=== PATIENT | male | born 1950 | race Caucasian/White ===

== ENCOUNTER 2017-10-28 13:20 | Inpatient (IN) | payer MEDICARE ==
[~2017-10-28] VITALS: Ht 177.8 cm; Wt 77.1 kg
[~2017-10-28 13:20] MED LIST: LEVAQUIN 500 M500 M2 PO; THIAMINE HCL100 MG PO; VITAMIN B-12500 MCG PO
[2017-10-28 13:24] VITALS: BP 123/64
[2017-10-28 13:53] LABS: ABSOLUTE EOSINOPHILS 0.1 thou/uL (0.0-0.7); ABSOLUTE LYMPHOCYTES 0.5 thou/uL (0.8-5.3); ABSOLUTE MONOCYTES 0.4 thou/uL (0.0-1.2); ABSOLUTE NEUTROPHILS 2.8 thou/uL (1.6-8.1); BASOPHILS 0.7 %; EOSINOPHILS 3.7 %; HEMATOCRIT 39.5 % (42.0-52.0); HEMOGLOBIN 13.4 gm/dL (14.0-18.0); LYMPHOCYTES 12.3 %; MCH 33.8 pg (26.0-34.0); MCHC 33.9 g/dL (28.0-37.0); MCV 99.7 fL (80.0-100.0); MONOCYTES 10.2 %; NUCLEATED RBCS 0 /100WBC; PLATELET COUNT* 91 thou/uL (150-400); POLYS 73.1 %; RBC 3.97 mil/uL (4.50-6.00); RDW-CV 15.5 % (10.5-14.5); WBC 3.9 thou/uL (4.0-11.0)
[2017-10-28 14:00] LABS: CALCIUM 9.4 mg/dL (8.5-10.1); CREATININE 1.3 mg/dL (0.6-1.3); POTASSIUM 3.1 mmol/L (3.5-5.1)
[2017-10-28 14:05] LABS: TOTAL BILIRUBIN 1.9 mg/dL (<0.1-1.0); TOTAL PROTEIN 7.7 g/dL (6.4-8.2)
[2017-10-28 14:13] LABS: ACETAMINOPHEN < 2 ug/mL (10-30); ALCOHOL < 10 mg/dL (<10)
[2017-10-28 14:14] LABS: SALICYLATE < 2.8 mg/dL (2.8-20.0)
[2017-10-28 16:14] LABS: URINE BLOOD NEGATIVE (Negative); URINE CLARITY CLEAR; URINE COLOR DARK YELLOW; URINE GLUCOSE-RANDOM NEGATIVE (Negative); URINE KETONES 1+ (Negative); URINE LEUKOCYTES-REFLEX NEGATIVE (Negative); URINE NITRITE-REFLEX NEGATIVE (Negative); URINE PROTEIN 1+ (Negative); URINE SPECIFIC GRAVITY 1.025 (1.005-1.030)
[2017-10-28 16:21] LABS: AMP/METHAMP Negative (Negative); BARBITURATES Negative (Negative); BENZODIAZEPINES Negative (Negative); COCAINE Negative (Negative); METHADONE Negative (Negative); OPIATES Negative (Negative); PCP Negative (Negative); THC Negative (Negative)
[2017-10-28 16:23] LABS: ICTOTEST (BILI CONFIRMATORY) Negative (Negative); URINE BILIRUBIN 2+ (Negative)
[2017-10-28 16:47] LABS: HYALINE CASTS >10 Many /LPF (None Seen); MUCUS >6 Heavy strn/LPF (None Seen)
[2017-10-28 16:48] LABS: SQUAMOUS 0-3 Few /LPF (0-3)
[2017-10-28 16:49] LABS: BACTERIA-REFLEX 1-9 Few /HPF (None Seen); CRYSTALS None Seen /LPF (None Seen); URINE RBC 0-2 Rare /HPF (0-2); URINE WBC-REFLEX 0-5 Rare /HPF (0-5)
[2017-10-28 18:08] VITALS: BP 144/86
[2017-10-28 18:10] VITALS: BP 137/91
[2017-10-28 18:23] VITALS: BP 123/64
[2017-10-28 20:00] VITALS: BP 140/85
[2017-10-29] VITALS: BP 138/84
[2017-10-29 03:53] VITALS: BP 143/91
[2017-10-29 08:00] VITALS: BP 146/82
[2017-10-29 12:00] VITALS: BP 132/73
[2017-10-29 20:00] VITALS: BP 138/90
[2017-10-30] VITALS (7 sets, daily range): BP systolic 127–145; BP diastolic 64–87
[2017-10-30 04:59] LABS: MAGNESIUM 1.5 mg/dL (1.8-2.4)
[2017-10-30 13:25] LABS: CHOLESTEROL 139 mg/dL (<200); HDL CHOLESTEROL 35 mg/dL (>40); LDL CHOLESTEROL 89 mg/dL (<100); TRIGLYCERIDE 75 mg/dL (<150); VLDL 15 mg/dL (<40)
[2017-10-30 13:26] LABS: SERUM ASSESSMENT Clear
[2017-10-31] VITALS: BP 142/82
[2017-10-31 04:00] VITALS: BP 125/76
[2017-10-31 08:04] VITALS: BP 145/80
[2017-10-31] MEDS ORDERED: ASPIR 8181 MG PO (11:27)
[2017-10-31] MEDS ORDERED: PRENATAL PO (11:28)
[2017-10-31 11:29] VITALS: BP 145/80
[2017-10-31 11:50] VITALS: BP 146/78
--- NOTE | 2017-11-07 08:15 | CON ---
[facility] [address] [place] [address] CONSULTATION Name: MAME MILIAN Room: [address] IN M.R.#: [id number] Admission: 10/28/17 Attend Phys: Rodrigo Griffiths Discharge: 10/31/17 Date of : 46 Report #: [id number] THIS REPORT FOR: //name// CC: [facility] Kelvin Weinberg DATE OF SERVICE: 10/28/2017 HISTORY OF PRESENT ILLNESS: This is a 66-year-old male patient who was evaluated by me for the possibility of a stroke. The patient is very hard of hearing. It is very difficult to get the history from him. He said he is here because he has hallucination. He is seeing things, which are not there. His vision has been poor because of diabetes, but he does not believe his vision is any worse. He drinks alcohol everyday. He said 2-3 drinks, but from CBC, it looks like he may be drinking much more than what he is telling us. There is nobody to confirm this patient's history because I cannot reach anybody. REVIEW OF SYSTEMS: Indicates that this patient drinks alcohol in significant amount everyday. He did not think he cut back. He does not believe that he had hallucinations in the past. He does have a significantly diminished vision and he indicated this is his baseline. He is hard of hearing. He said he was working, but he is not going back to work. He is a diabetic. He said he is not going back to work because of his age, not because of anything else. I carried out the 14-point review of systems the best I can. He is very hard of hearing. He has baseline visual disturbances. He is not having any chest pain, respiratory difficulty. He did have some GI symptom where he was vomiting. He denies any symptoms. He denies any musculoskeletal, constitutional, dermatological, hematological, throat, allergic symptom associated with present symptomatology. PAST MEDICAL HISTORY: Positive for alcohol intake. FAMILY HISTORY: Negative for early age stroke. SOCIAL HISTORY: Positive for drinking alcohol every days. PHYSICAL EXAMINATION: Indicate he is very difficult to evaluate because he is very hard of hearing and his vision is poor, but looks like he is alert. He can tell me what month it is, and his speech looks okay. He believes his memory and fund of knowledge is at his baseline. Cranial nerve examination 2-12 indicates decreased vision, which he indicates is because of the diabetes affecting his eyes in the past. His strength, sensation, reflexes and tone is symmetrical. I could not look at his fundus. There is no meningeal sign. There is no carotid bruit. There is no cerebellar sign. His pulses are difficult to feel. His reflexes are diminished on both sides. He has no edema, [place]osis [place] [address] CONSULTATION Name: MAME MILIAN Room: [address] IN [facility]#: [id number] Admission: 10/28/17 Attend Phys: Rodrigo Griffiths Discharge: 10/31/17 Date of : 46 Report #: [id number] He is a well-developed individual who does not have any thyroid mass or any carotid bruit. Cardiac examination is unremarkable. No respiratory difficulty or rhonchi was noticed. Blood pressure is 123/64, respirations 17, pulse is 119, temperature is 99.7. LABORATORY DATA: Indicate a WBC count of 3.9, platelet count of 91, which would indicate that he probably drinks alcohol more than he is telling us, same is true with the liver function, which is markedly abnormal. His MRI and CT scan was done in Emergency Room and that appears unremarkable. IMPRESSION: Hallucination. It is unlikely there is any neurological etiology for that, especially stroke. This patient has liver dysfunction. He is a diabetic. He has a prior ophthalmological problem. I will suggest concentrating the patient's workup to evaluate those further. I will defer that further evaluation and management to yourself. A lot of his symptoms can also be alcohol related, and again, that may have to be addressed in this patient. RECOMMENDATIONS: Neurologically, I do not think much to add because I do not think his symptoms are neurological primarily. I will suggest concentrating on his liver abnormalities, eye abnormalities, his alcoholism, etc., and I will defer that evaluation and management to you. I will get an EEG and will suggest getting a carotid and echocardiogram to look for any cardiomyopathy. Otherwise, neurologically, I do not have anything specific to add, and we will follow this patient as necessary. <ELECTRONICALLY SIGNED> By: Kun Smiley MD 11/07/17 0815 50 235Kun Smiley MD /carol
--- NOTE | 2017-11-07 08:15 | EEG ---
[address] [address] EEG STUDY REPORT Name: MAME MILIAN Room: [address] IN M.R.#: [id number] Admission: 10/28/17 Attend Phys: Rodrigo Griffiths Discharge: 10/31/17 Date of : 46 Report #: [id number] THIS REPORT FOR: //name// CC: [facility] Kelvin Weinberg DATE OF SERVICE: 10/29/2017 This patient is being evaluated for altered mental status. EEG was done by placing the electrode by standard 10/20 system of electrode placement. Both referential and sequential montages were used for recording. Background activity in this patient's EEG is about 8-9 Hz and 30 microvolts. This is a symmetrical activity. The patient went to sleep that is associated with bilateral slowing and vertex sharp waves. Photic stimulation is unremarkable. Throughout the record, no active epileptiform activity was noticed. IMPRESSION: This patient's EEG is intermixed with theta range slowing on both sides. That is a nonspecific abnormality, which can occur with encephalopathy, effect of psychotropic medication, dementia, etc. Clinical correlation is recommended. <ELECTRONICALLY SIGNED> By: Kun Smiley MD 11/07/17 0815 [id number] [id number] Smiley MD /nt
== END 2017-10-31 14:17 | disposition home or self-care (01) | DRG 70 ==
LOC: M.ERS 13:20 → M.TBA-ER 17:28 → M.2W 17:28
PROVIDERS: Emergency Medicine; ADMIT Internal Medicine
DX: G93.40 Encephalopathy, unspecified (principal); R65.11 Systemic inflammatory response syndrome (SIRS) of non-infectious origin with acute organ dysfunction; D61.818 Other pancytopenia; G62.1 Alcoholic polyneuropathy; G31.84 Mild cognitive impairment of uncertain or unknown etiology; I65.1 Occlusion and stenosis of basilar artery; E11.9 Type 2 diabetes mellitus without complications; K76.89 Other specified diseases of liver; H40.9 Unspecified glaucoma; E03.9 Hypothyroidism, unspecified; R44.1 Visual hallucinations; F10.10 Alcohol abuse, uncomplicated; Y90.9 Presence of alcohol in blood, level not specified; Z98.42 Cataract extraction status, left eye; Z98.41 Cataract extraction status, right eye; Z79.899 Other long term (current) drug therapy

== ENCOUNTER 2018-10-16 09:37 | Inpatient (IN) | payer MEDICARE ==
[2018-10-16] VITALS (14 sets, daily range): BP systolic 99–157; BP diastolic 57–87
[~2018-10-16] VITALS: Ht 182.9 cm; Wt 71.7 kg
[~2018-10-16 09:37] MED LIST changes: +ASPIR 8181 MG PO; +PRENATAL PO
[2018-10-16 10:08] LABS: URINE BILIRUBIN NEGATIVE (Negative); URINE BLOOD NEGATIVE (Negative); URINE CLARITY CLEAR; URINE COLOR YELLOW; URINE GLUCOSE-RANDOM NEGATIVE (Negative); URINE KETONES NEGATIVE (Negative); URINE LEUKOCYTES-REFLEX NEGATIVE (Negative); URINE NITRITE-REFLEX NEGATIVE (Negative); URINE PROTEIN TRACE (Negative); URINE SPECIFIC GRAVITY >= 1.030 (1.005-1.030)
[2018-10-16 10:17] LABS: AMP/METHAMP Negative (Negative); BARBITURATES Negative (Negative); BENZODIAZEPINES Negative (Negative); COCAINE Negative (Negative); METHADONE Negative (Negative); OPIATES Negative (Negative); PCP Negative (Negative); THC Negative (Negative)
[2018-10-16 10:24] LABS: HEMATOCRIT 43.2 % (42.0-52.0); HEMOGLOBIN 14.7 gm/dL (14.0-18.0); MCH 33.3 pg (26.0-34.0); MCV 97.9 fL (80.0-100.0); MPV 7.8 fl. (7.2-11.1); NUCLEATED RBCS 0 /100WBC; PLATELET COUNT* 230 thou/uL (150-400); RBC 4.41 mil/uL (4.50-6.00); RDW-CV 16.1 % (10.5-14.5); WBC 3.4 thou/uL (4.0-11.0)
[2018-10-16 10:30] LABS: ANION GAP 9 mmol/L (7-16); BUN 15 mg/dL (7-18); CALCIUM 8.3 mg/dL (8.5-10.1); CHLORIDE 110 mmol/L (98-107); CO2 30 mmol/L (21-32); GLUCOSE 127 mg/dL (70-99); POTASSIUM 3.7 mmol/L (3.5-5.1); SODIUM 149 mmol/L (136-145)
[2018-10-16 10:31] LABS: APTT 26.7 Seconds (25.0-31.3); PROTIME 10.5 Seconds (9.20-11.50)
[2018-10-16 10:44] LABS: ALCOHOL 268 mg/dL (<10); SALICYLATE < 2.8 mg/dL (2.8-20.0)
[2018-10-16 10:45] LABS: ACETAMINOPHEN < 2 ug/mL (10-30)
[2018-10-16 10:46] LABS: ALBUMIN 3.3 g/dL (3.4-5.0); ALKALINE PHOSPHATASE 160 U/L (46-116); NT-PRO BRAIN NAT PEPTIDE 46 pg/mL (<300); SGOT 25 U/L (15-37); SGPT 31 U/L (30-65); TOTAL BILIRUBIN 0.3 mg/dL (<0.1-1.0); TOTAL PROTEIN 6.9 g/dL (6.4-8.2); TROPONIN-I LEVEL <0.06 ng/mL (<0.06)
[2018-10-16 10:53] LABS: ABSOLUTE EOSINOPHILS 0.4 thou/uL (0.0-0.7); ABSOLUTE LYMPHOCYTES 1.4 thou/uL (0.8-5.3); ABSOLUTE MONOCYTES 0.5 thou/uL (0.0-1.2)
[2018-10-16 10:54] LABS: ANISOCYTOSIS 1+; PLATELET ESTIMATE ADEQUATE; POIKILOCYTOSIS 1+
--- NOTE | 2018-10-16 13:41 | NUR ---
SPOKE WITH KELBY FROM [facility] ([phone]). THEY HAVE BEEN FOLLOWING PATIENT AT HOME. THEY HAD AN APPT TO SEE THE PT YESTERDAY BUT THEY COULDN'T REACH HIM. WHEN THEY WERE UNABLE TO REACH HIM AGAIN THIS MORNING THEY CALLED THE POLICE TO DO A WELL-CHECK, HAD TO BREAK INTO THE HOUSE. 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 SHE MADE A HOTLINE CALL TO SENIOR SERVICES THIS MORNING. SHE SAID SHE WILL COME SEE HIM ONCE HE IS MORE AWAKE AND ALERT, THEY HAVE BEEN TRYING TO WORK WITH HIM TO GET HIM TO AGREE WITH AN ALTERNATE LIVING ARRANGEMENT. KELBY SAID THEY HAVE NO EMERGENCY CONTACT INFORMATION ON HIM. HE HAS AN EX- BUT KELBY DOESN'T KNOW IF HE HAS ANY CONTACT WITH HER, HE HAS AN ESTRANGED DAUGHTER THAT HE HAS NO CONTACT WITH. CASE MGT WILL CONTINUE TO FOLLOW.
--- NOTE | 2018-10-16 16:10 | EKG ---
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: Carlos MOTA : 1950 Requested By: Dequan Lord Order Number: [id number] MD: Kelvin Almendarez Measurements Intervals [place] Rate: 71 P: 44 CO: 229 QRS: 47 QRSD: 135 T: 7 QT: 402 QTc: 437 Interpretive Statements Sinus rhythm Prolonged CO interval Right bundle branch block Compared to ECG 06/30/2014 06:58:37 First degree AV block now present Right bundle-branch block now present Sinus tachycardia no longer present Electronically Signed On 10-16-2018 16:10:44 CDT by Kelvin Almendarez [email or web address] <ELECTRONICALLY SIGNED> By: Kelvin Almendarez MD, [facility] 10/16/18 1610 1001 1001 Kelvin Almendarez MD, [facility] /EPI
--- NOTE | 2018-10-16 19:24 | NUR ---
10/16 Days: New admit from the ED. Agitated and anxious at times, CIWAL >10, PRN ativan utilized. MRI on hold as patient can not relay history. No family contact information on file.
[2018-10-17] VITALS (17 sets, daily range): BP systolic 114–162; BP diastolic 66–107
[2018-10-17 04:29] LABS: ABSOLUTE EOSINOPHILS 0.3 thou/uL (0.0-0.7); ABSOLUTE LYMPHOCYTES 0.6 thou/uL (0.8-5.3); ABSOLUTE MONOCYTES 0.9 thou/uL (0.0-1.2); ABSOLUTE NEUTROPHILS 3.4 thou/uL (1.6-8.1); BASOPHILS 0.5 %; EOSINOPHILS 6.3 %; HEMATOCRIT 41.5 % (42.0-52.0); HEMOGLOBIN 13.6 gm/dL (14.0-18.0); LYMPHOCYTES 11.7 %; MCH 32.5 pg (26.0-34.0); MCHC 32.7 g/dL (28.0-37.0); MCV 99.5 fL (80.0-100.0); MONOCYTES 16.8 %; NUCLEATED RBCS 0 /100WBC; PLATELET COUNT* 172 thou/uL (150-400); POLYS 64.7 %; RBC 4.17 mil/uL (4.50-6.00); WBC 5.2 thou/uL (4.0-11.0)
[2018-10-17 04:57] LABS: ALBUMIN 3.1 g/dL (3.4-5.0); CREATININE 0.7 mg/dL (0.6-1.3); MAGNESIUM 2.1 mg/dL (1.8-2.4); POTASSIUM 4.2 mmol/L (3.5-5.1); TOTAL BILIRUBIN 0.7 mg/dL (<0.1-1.0); TOTAL PROTEIN 6.3 g/dL (6.4-8.2)
[2018-10-17 05:19] LABS: CHOLESTEROL 141 mg/dL (<200); HDL CHOLESTEROL 46 mg/dL (>40); LDL CHOLESTEROL 84 mg/dL (<100); TC:HDL 3.1 Ratio (Not establshd); TRIGLYCERIDE 55 mg/dL (<150); VLDL 11 mg/dL (<40)
[2018-10-17 05:36] LABS: SERUM ASSESSMENT CLEAR
--- NOTE | 2018-10-17 05:57 | NUR ---
REPORT RECEIVED FROM OFF GOIGN SHIFT AND CARE ASSUMMED. PT RESTED QUIELTY MOST OF SHIFT, HOWEVER WOKE CONFUSED AND PULLED ALL IVS OUT AND MONITORS OFF. ATTEMPTED TO REORIENT PT UNSUCCESSFULLY. SEIZURE PRECAUTIONS REMAIN IN AFFECT. MONITORS INTACT WITH ALARMS SET. VSS AND NO ACUTE CHANGES DURING SHIFT WILL CONTINUE TO MONITOR
--- NOTE | 2018-10-17 18:00 | NUR ---
ASSESSMENT CHARTED. VSS. UP WITH 1 ASSIST TO CHAIR BUT PT IS VERY WEAK. RAMIREZ REMOVED AND PATIENT IS INCONTINENT OF BOWEL AND BLADDER. NO REPORTS OF PAIN. CIWA 3,3,2 AND PT DOES NOT APPEAR TO BE ANXIOUS. PT IS NOW TELEMETRY STATUS.
[2018-10-18 02:06] LABS: GLYCOHEMOGLOBIN (HGB A1C) 6.2 % (4.8-5.6)
[2018-10-18 04:40] VITALS: BP 182/86
--- NOTE | 2018-10-18 05:09 | NUR ---
VITALS STABLE, AFEBRILE. PATIENT ALERT AND CONFUSED, ORIENTED TO SELF ONLY AT THIS TIME. INCONTINENT TO URINE AND BOWEL. Q2 TURNS FOR SKIN INTEGRITY. ABLE TO SLEEP SOME.
[2018-10-18 06:03] LABS: ALBUMIN 2.9 g/dL (3.4-5.0); CALCIUM 8.7 mg/dL (8.5-10.1); CREATININE 0.9 mg/dL (0.6-1.3); PHOSPHORUS* 2.8 mg/dL (2.5-4.9); POTASSIUM 4.2 mmol/L (3.5-5.1)
[2018-10-18 08:00] VITALS: BP 171/90
[2018-10-18 12:00] VITALS: BP 158/93
[2018-10-18 16:00] VITALS: BP 157/91
--- NOTE | 2018-10-18 18:47 | NUR ---
PT ASSESSMENT CHARTED. VSS THROUGHOUT SHIFT. UP WITH 1 ASSIST AND A GATE BELT BUT PATIENT IS STILL VERY WEAK. ORDERS RECEIVED FOR PT/OT/ST. UP TO CHAIR FOR MEALS. IV IN LEFT RIGHT REMOVED IT INFILTRATED. NEW 18G PLACED IN LEFT FOREARM. PT INSTRUCTED TO ELEVATE ARM TO HELP REDUCE SWELLING. NO OTHER COMPLAINTS DURING THE SHIFT. PT EATING 100% OF MEALS WITHOUT DIFFICULTY. NO REPORTS OF PAIN.
[2018-10-19 00:13] VITALS: BP 150/96
[2018-10-19 03:59] VITALS: BP 164/98
--- NOTE | 2018-10-19 06:51 | NUR ---
VITALS STABLE, AFEBRILE. PATIENT SLEEPING THROUGH MOST OF THE NIGHT. INCONTINENT, CONFUSED. UNEVENTFUL NIGHT. Q2 TURNS FOR SKIN INTEGRITY.
[2018-10-19 07:19] VITALS: BP 162/107
--- NOTE | 2018-10-19 10:30 | NUR ---
PT SITTING UP IN THE CHAIR, HE KNEW HE WAS AT [facility]. WHEN ASKED WHAT HAPPENED LAST WEEK THAT HE ENDED UP IN THE HOSPITAL, HE SAID HE DIDN'T KNOW. 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 WHEN ASKED IF HE HAD ANY FAMILY, FRIENDS, OR NEIGHBORS WHO COULD HELP HIM IF NEEDED, HE SAID 'NO, THEY AREN'T TALKING TO ME.' PT SAID HE PLANS ON RETURNING HOME ALONE AT DISCHARGE. CASE MGT WILL CONTINUE TO FOLLOW.
[2018-10-19 12:08] VITALS: BP 133/87
--- NOTE | 2018-10-19 13:14 | NUR ---
PATIENT ALERT AND ORIENTED TO SELF, PLACE AND TIME. VSS. O2 SATS >92% IN RA. UP WITH 1 ASSIST AND SITTING IN THE CHAIR FROM 0830,CHAIR ALARM ON. ATE HIS MEALS PROPERLY. HAD A BM- HARD FORMED STOOL.
--- NOTE | 2018-10-19 15:54 | NUR ---
SPOKE WITH STEVEN YOUNG FROM [facility] ([phone]). SHE IS FOLLOWING UP ON HOTLINE CALL. UPDATED HER ON PT'S CONDITION. SHE SAID SHE HAS NOT SEEN PT BUT WILL BE COMING TO THE HOSPITAL.
--- NOTE | 2018-10-19 16:30 | NUR ---
KELBY FROM [facility] HERE TO SEE PT. 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 SHE WILL TALK WITH HIM AND ENCOURAGE HIM TO GO TO A JAIL AT DISCHARGE.
[2018-10-19 16:49] VITALS: BP 165/102
--- NOTE | 2018-10-19 18:01 | NUR ---
PT WALKED THE HALLWAY SLOWLY WTIH THE HELP OF PT.
--- NOTE | 2018-10-19 18:54 | NUR ---
PT TRANSFERRED TO ROOM 219 VIA WHEELCHAIR FROM ICU. REPORT RECEIVED FROM ROBBIE TOBIAS. THIS RN AGREES WITH PREVIOUS DIRECTOR SANITATION BUREAU. WILL CONTINUE TO MONITOR . BED ALARM IN PLACE.
[2018-10-19 19:30] VITALS: BP 126/75
--- NOTE | 2018-10-19 20:10 | NUR ---
RECEIVED REPORT AND ASSUMED CARE. VSS. CARDIAC MONITORING IN PLACE. NO REPORTS OF PAIN FROM PT. PT SLEEPING, WILL AROUSE AND FOLOW COMMANDS. FALLS ASLEEP SHORTLY AFTER BRIEF INTERACTION. BED LOCKED IN LOWEST POSITION, CALL LIGHT WITHIN REACH. BED ALARM ON. ASSESSMENT COMPLETED CHARTED
[2018-10-20] VITALS (7 sets, daily range): BP systolic 98–154; BP diastolic 54–89
[2018-10-20 05:14] LABS: CALCIUM 9.1 mg/dL (8.5-10.1); MAGNESIUM 1.5 mg/dL (1.8-2.4); PHOSPHORUS* 3.8 mg/dL (2.5-4.9); POTASSIUM 3.9 mmol/L (3.5-5.1)
[2018-10-20 05:25] LABS: HEMATOCRIT 39.2 % (42.0-52.0); HEMOGLOBIN 13.4 gm/dL (14.0-18.0); MCHC 34.1 g/dL (28.0-37.0); MCV 96.8 fL (80.0-100.0); MPV 8.7 fl. (7.2-11.1); RBC 4.05 mil/uL (4.50-6.00); RDW-CV 15.3 % (10.5-14.5); WBC 4.3 thou/uL (4.0-11.0)
--- NOTE | 2018-10-20 08:15 | NUR ---
ASSUMED CARE OF PT AT 0730. PT LYING IN BED. PT A&0X4, FORGETFUL AT TIMES. PT IS SLOW TO RESPOND. PT TRACING SR WITH FIRST DEGREE, BBB ON THE RIG SUPERVISOR. ON RA SAT 97%. PT DENIES ANY PAIN OR SHORTNESS OF BREATH AT THIS TIME. PT UP WITH 1 ASSIST. CIWA COMPLETED. REFER TO CHARTING. PT GOAL FOR TODAY IS REPLACE MAGNESIUM PER ELECTROLYTE PROTOCOL, INCREASE ACTIVITY AND DISCHARGE PLANNING. AM ASSESSMENT CHARTED. MEDICATIONS PER JUL. PT REPOSITIONS SELF WITH REMINDERS. HOURLY ROUNDING OBSERVED. BED IN LOW POSITION. BED ALARM IN PLACE. FALL PRECAUTIONS IN PLACE, CALL LIGHT WITHIN REACH. WILL CONTINUE PLAN OF CARE.
--- NOTE | 2018-10-20 15:09 | NUR ---
CM spoke with Pt regarding dispositin and Drs recommendation of skilled, Pt in agreement, faxed referral to [facility] per Pt's request. Pt also asked that CM contact Mariela/Gustavo with [facility] to inform them of dc plan. Anticipate dc tomorrow, pending V decision to accept.
--- NOTE | 2018-10-20 18:09 | NUR ---
NO ACUTE CHANGES THROUGHOUT SHIFT. REFER TO CHARTING. PT PROGRESSING TOWARDS GOALS. PT WORKED WITH PT AND OT TODAY-TOLERATED WELL. PROBABLE DISCHARGE TO SNF TOMORROW 10/21. CONTINUES TO TRACE SR ON THE AUTOMOTIVE AIRCONDITIONING MECHANIC. ON RA SAT UPPER 90'S. PT DENIES ANY SHORTNESS OF BREATH OR PAIN. PT UP WITH 1 ASSIST. PT SAT UP IN THE CHAIR FOR MEALS, TOLERATED WELL. CIWA COMPLETED. REFER TO CHARTING. MEDICATIONS PER JUL. PT REPOSITIONS SELF. HOURLY ROUNDING OBSERVED. BED IN LOW POSITION. CALL LIGHT WITHIN REACH. WILL CONTINUE PLAN OF CARE.
--- NOTE | 2018-10-21 03:12 | NUR ---
ASSUMED CARE OF PT AT 1900. PT IS VERY WITHDRAWN. PT IS ABLE TO FOLLOW COMMANDS BUT WILL NOT ANSWER QUESTIONS. VSS. PERRLA. NO COMPLAINTS OF PAIN. CIWA IS 0. PT IS IN SINUS RYTHM ON THE TELEMETRY. PT IS RESTING COMFORTABLY IN BED. RESPIRATIONS ARE EVEN AND NONLABORED. WILL CONTINUE TO MONITOR PT.
[2018-10-21 04:00] VITALS: BP 123/68
[2018-10-21 07:56] VITALS: BP 139/93
--- NOTE | 2018-10-21 10:11 | NUR ---
ASSUMED CARE OF PT AT 0730. PT RESTING IN BED. PT A&0X4, FORGETFUL, SLOW TO RESPOND, COGNITIVE DELAY NOTED. PT DENIES ANY PAIN OR SHORTNESS OF BREATH AT THIS TIME. PT TRACING SR WITH BBB ON THE SOCIAL STUDIES TEACHER. ON RA SAT UPPER 90'S. PT UP WITH 1 ASSIST. CIWA COMPLETED. REFER TO CHARTING. PT GOAL FOR TODAY IS REPLACE MAGNESIUM PER ELECTROLYTE PROTOCOL, DISCHARGE PLANNING TO SNF AND MONITOR CIWA. AM ASSESSMENT CHARTED. MEDICATIONS PER JUL. PT REPOSITIONS SELF. HOURLY ROUNDING OBSERVED. BED IN LOW POSITION, BED ALARM IN PLACE. FALL PRECAUTIONS IN PLACE. CALL LIGHT WITHIN REACH, WILL CONTINUE PLAN OF CARE.
[2018-10-21 12:35] VITALS: BP 142/92
[2018-10-21 13:18] VITALS: BP 142/92
[2018-10-21] MEDS ORDERED: PRENATAL PO ×2 (14:09→14:11)
[2018-10-21] MEDS ORDERED: VITAMIN B-1100 M1 PO (14:09)
[2018-10-21] MEDS ORDERED: PROTONIX40 M1 PO (14:09)
--- NOTE | 2018-10-21 14:34 | CON ---
[address] [address] CONSULTATION Name: MAME MILIAN Room: [address] IN M.R.#: [id number] Admission: 10/16/18 Attend Phys: Amol Red MD Discharge: Date of : 46 Report #: [id number] THIS REPORT FOR: //name// CC: Kelvin Red DATE OF SERVICE: 10/19/2018 HISTORY OF PRESENT ILLNESS: This is a 67-year-old male patient who was evaluated by me for altered mental status. The patient appeared to be hard of hearing. He does not provide any reliable history. He was found unresponsive at home in very undesirable conditions. I do not know what his baseline is and after talking to him for a while, I still cannot tell what his baseline is. No pill bottles were found and there is some history in the chart, which indicates that there may be problem with alcohol. He is very hard of hearing. He may have some history of neuropathy in the lower extremities. The patient at one point was agitated and apparently was having some visual hallucination. When he came in, his blood alcohol level was 268. REVIEW OF SYSTEMS: Only from the records because he does not provide any good history. Apparently, he has some history of alcohol intake. He had some altered mental status. He is very hard of hearing. He had cataracts. One of the records indicates he had basilar artery stenosis. He did have MRA done in 2018 and at that time it has shown some basilar artery stenosis. This patient was seen by me at that time. At that time, he also has indicated that he had some hallucination. He had liver abnormality at that time. I attempted a 14-point review of system in this patient, but I was not able to get much from him except by reviewing the records as described above. PAST MEDICAL HISTORY: Positive for hallucination. At one time, his liver function was also abnormal. His alcohol level is high. FAMILY HISTORY: He indicates is negative for any seizures. SOCIAL HISTORY: It looks like he drinks alcohol, but he does not tell me how much. PHYSICAL EXAMINATION: His examination is difficult because he is not able to cooperate. He is also very hard of hearing. I cannot tell about his memory problems or any fund of knowledge. Cranial nerve examination 2-12 was attempted, cooperation was poor and I could not tell much. It looks like he can move all four extremities. He has no meningeal sign. He did not allow the fundus examination. Cardiac examination appears unremarkable. No respiratory difficulty or rhonchi was noticed. His blood pressure is 165/102, respiration is 11, pulse is 86 and temperature [place] 98[place] [address] CONSULTATION Name: MAME MILIAN Room: [address] IN M.R.#: [id number] Admission: 10/16/18 Attend Phys: Amol Red MD Discharge: Date of : 46 Report #: [id number] LABORATORY DATA: White count is 5.2. He did have an MRI of the brain, which was unremarkable. IMPRESSION: I suspect the patient's problem is alcohol related. I cannot get a good history to make any definite diagnosis in this patient. I will get an EEG done. He already had an MRI. The treatment may be just symptomatic in this patient. I will discuss this patient with you tomorrow. Thank you very much for this referral. <ELECTRONICALLY SIGNED> By: Kun Russell MD 10/21/18 1434 [id number] Russell MD /nt
--- NOTE | 2018-10-21 15:28 | NUR ---
DISCHARGE ORDERS RECEIVED FOR PT TO DISCHARGE TO [facility]. DISCHARGE INSTRUCTIONS, CARE NOTES AND FOLLOW UP APPTS COPIED AND PLACED IN FOLDER FOR TRANSPORTER. IV AND INFANTRY WEAPONS OFFICER REMOVED. PT DISCHARGED WITH ALL BELONGINGS AND PAPERWORK VIA WHEELCHAIR WITH WHEELCHAIR [facility]. REPORT CALLED TO KATEY AT [facility].
== END 2018-10-21 15:35 | DRG 71 ==
LOC: M.ERS 09:37 → M.ICU 11:36 → M.TBA-ER 11:36 → M.ICU 12:48 → M.2W 10-19 19:00
PROVIDERS: Emergency Medicine Emergency Medical Services; Internal Medicine; ADMIT Family Medicine
DX: G93.41 Metabolic encephalopathy (principal); E44.1 Mild protein-calorie malnutrition; F10.239 Alcohol dependence with withdrawal, unspecified; G31.84 Mild cognitive impairment of uncertain or unknown etiology; H91.90 Unspecified hearing loss, unspecified ear; H40.9 Unspecified glaucoma; H26.9 Unspecified cataract; R26.81 Unsteadiness on feet; I65.1 Occlusion and stenosis of basilar artery; E11.22 Type 2 diabetes mellitus with diabetic chronic kidney disease; N18.2 Chronic kidney disease, stage 2 (mild); E86.0 Dehydration; Y90.9 Presence of alcohol in blood, level not specified; Z79.82 Long term (current) use of aspirin; Z79.899 Other long term (current) drug therapy; Z82.1 Family history of blindness and visual loss

== ENCOUNTER 2019-02-15 15:10 | Inpatient (IN) | payer MEDICARE ==
[~2019-02-15] VITALS: Ht 177.8 cm; Wt 72.0 kg
[~2019-02-15 15:10] MED LIST changes: +PROTONIX40 M1 PO; +VITAMIN B-1100 M1 PO
[2019-02-15 15:12] VITALS: BP 121/87
[2019-02-15] MEDS ORDERED: NEURONTIN600 MG PO (15:34)
[2019-02-15] MEDS ORDERED: METFORMIN HCL500 MG PO (15:34)
[2019-02-15 15:46] LABS: ABSOLUTE BASOPHILS 0.1 thou/uL (0.0-0.2); ABSOLUTE EOSINOPHILS 0.3 thou/uL (0.0-0.7); ABSOLUTE LYMPHOCYTES 1.1 thou/uL (0.8-5.3); ABSOLUTE MONOCYTES 0.5 thou/uL (0.0-1.2); ABSOLUTE NEUTROPHILS 3.4 thou/uL (1.6-8.1); BASOPHILS 1.4 %; EOSINOPHILS 4.7 %; HEMOGLOBIN 14.9 gm/dL (14.0-18.0); LYMPHOCYTES 20.8 %; MCH 32.3 pg (26.0-34.0); MCHC 34.6 g/dL (28.0-37.0); MCV 93.3 fL (80.0-100.0); MONOCYTES 8.5 %; MPV 7.7 fl. (7.2-11.1); NUCLEATED RBCS 0 /100WBC; PLATELET COUNT* 162 thou/uL (150-400); POLYS 64.6 %; RBC 4.61 mil/uL (4.50-6.00); RDW-CV 14.3 % (10.5-14.5); WBC 5.3 thou/uL (4.0-11.0)
[2019-02-15 15:50] LABS: ANION GAP 11 mmol/L (7-16); BUN 16 mg/dL (7-18); CALCIUM 8.8 mg/dL (8.5-10.1); CHLORIDE 102 mmol/L (98-107); CO2 26 mmol/L (21-32); CREATININE 1.4 mg/dL (0.6-1.3); GLUCOSE 161 mg/dL (70-99); POTASSIUM 3.8 mmol/L (3.5-5.1); SODIUM 139 mmol/L (136-145)
[2019-02-15 16:00] LABS: ALBUMIN 3.5 g/dL (3.4-5.0); ALKALINE PHOSPHATASE 193 U/L (46-116); SGOT 25 U/L (15-37); SGPT 29 U/L (30-65); TOTAL BILIRUBIN 1.2 mg/dL (<0.1-1.0); TOTAL PROTEIN 7.2 g/dL (6.4-8.2); TROPONIN-I LEVEL <0.06 ng/mL (<0.06)
[2019-02-15 18:38] LABS: URINE BLOOD NEGATIVE (Negative); URINE CLARITY CLEAR; URINE COLOR YELLOW; URINE GLUCOSE-RANDOM NEGATIVE (Negative); URINE KETONES 1+ (Negative); URINE LEUKOCYTES-REFLEX NEGATIVE (Negative); URINE NITRITE-REFLEX NEGATIVE (Negative); URINE PROTEIN 2+ (Negative); URINE SPECIFIC GRAVITY 1.025 (1.005-1.030)
[2019-02-15 18:44] LABS: AMP/METHAMP Negative (Negative); BARBITURATES Negative (Negative); BENZODIAZEPINES Negative (Negative); COCAINE Negative (Negative); METHADONE Negative (Negative); OPIATES Negative (Negative); PCP Negative (Negative); THC Negative (Negative)
[2019-02-15 18:49] LABS: ICTOTEST (BILI CONFIRMATORY) Negative (Negative); URINE BILIRUBIN 1+ (Negative)
[2019-02-15 19:04] LABS: CRYSTALS None Seen /LPF (None Seen); HYALINE CASTS 4-10 Moderate /LPF (None Seen); MUCUS 4-6 Moderate strn/LPF (None Seen); SQUAMOUS 4-10 Moderate /LPF (0-3); URINE RBC 0-2 Rare /HPF (0-2)
[2019-02-15 19:05] LABS: BACTERIA-REFLEX 1-9 Few /HPF (None Seen); URINE WBC-REFLEX None Seen /HPF (0-5)
--- NOTE | 2019-02-15 21:06 | NUR ---
PT ADMITTED TO FLOOR ACCOMPANIED BY ER STAFF. PT AOX4, VERY [place], CALM AND APPROPRIATE. ORIENTED TO ROOM AND CALL LITE. DENIES PAIN. STATES HE IS WEAK AND HASNT FELT "GOOD" IN A FEW DAYS, FALLING AT HOME. DENIES HITTING HEAD, JUST SCRAPING KNEES HE STATES. INSTRUCTED IN NEED TO CALL FOR ASSIST BEFORE GETTING OOB, PT VERBALIZES UNDERSTANDING. PLACED ON TELE MONITOR, SR BBB RHYTHM NOTED. LFA SL IV. REQUESTING ICE CREAM, GIVEN. CALL LITE IN EASY REACH. BED ALARM ON FOR SAFETY. WILL CONTINUE TO MONITOR AND PROVIDE CARES NEEDED.
[2019-02-15 21:10] VITALS: BP 149/71
[2019-02-15 21:20] VITALS: BP 146/84
[2019-02-16 02:07] LABS: GLYCOHEMOGLOBIN (HGB A1C) 6.5 % (4.8-5.6)
[2019-02-16 04:17] VITALS: BP 152/80
--- NOTE | 2019-02-16 05:48 | NUR ---
PT AWAKE OFF AND ON OVERNIGHT, WATCHING TV. USING URINAL IN BED TO VOID. TELE SR BBB. LFA SLIV. HAS DENIED PAIN OR PROBLEMS. ICE CREAM SNACK GIVEN X2. SNOQUALMIE. PT MOVES ABOUT IN BED INDEP, TURNS FROM SIDE TO SIDE. CM TO FOLLOW FOR DC PLAN. ABLE TO USE CALL LITE AND MAKE NEEDS KNOWN. BED ALARM ON FOR SAFETY. HISTORY OF ETOH USE/ABUSE. NO TREMORS, HALLUCINATIONS OR SIGNS OF WITHDRAWAL NOTED.
[2019-02-16 07:51] VITALS: BP 133/65
--- NOTE | 2019-02-16 09:30 | EKG ---
[place] [address] ELECTROCARDIOGRAM REPORT Name: MAICOLMAME Akhil Room: [address] ADM IN .R.#: [id number] Admission: 02/15/19 Attend Phys: Rodrigo Griffiths Discharge: Date of : 46 Report #: [id number] THIS REPORT FOR: //name// [facility] ED Test Date: 2019-02-15 Test Time: 15:26:25 Pat Name: MAME MILIAN Department: Room: [facility] Gender: M Stock Checker: EV : 1950 Requested By: Jenny Herrera Order Number: [id number] MD: Ruslan Sutton Measurements Intervals [place] Rate: 95 P: 7 [place]: 218 QRS: 33 QRSD: 132 T: -27 QT: 379 QTc: 477 Interpretive Statements Sinus rhythm First-degree AV block Complete right bundle-branch block Baseline wander in lead(s) V1,V2,V3,V6 Compared to ECG 10/16/2018 10:01:26 No significant changes Electronically Signed On 02-16-2019 9:30:21 CDT by Ruslan Sutton [email or web address] <ELECTRONICALLY SIGNED> By: Ruslan Sutton MD, FACC 02/[birth year]/1930 1526 1526 Ruslan Sutton MD, FAC /EPI
[2019-02-16 12:34] VITALS: BP 125/78
[2019-02-16 16:05] VITALS: BP 133/72
--- NOTE | 2019-02-16 16:05 | NUR ---
ASSESSMENT COMPLETE. PT IS ALERT AND ORIENTED X4. PT IS HARD OF HEARING. PT IS UP STANDBY ASSIST WITH WALKER. PT IS FALL RISK, BED ALARM IN PLACE. PT IN CHAIR PART OF THE DAY. BATH DONE WITH OT. PHYSICAL THERAPY WORKED WITH PATIENT WELL. PT TOLERATING MEALS AND DENIES N/V. PT IS NSR WITH 1ST DEGREE. PT IS ON ROOM AIR,VSS. SEE ASSESSMENT AND VITALS FOR OTHER DETAILS. CALL LIGHT WITHIN REACH, WILL CONTINUE PLAN OF CARE
[2019-02-16 19:53] VITALS: BP 121/71
[2019-02-17] VITALS (7 sets, daily range): BP systolic 125–144; BP diastolic 75–88
[2019-02-17 05:13] LABS: HEMATOCRIT 39.4 % (42.0-52.0); HEMOGLOBIN 13.1 gm/dL (14.0-18.0); MCH 31.6 pg (26.0-34.0); MCHC 33.3 g/dL (28.0-37.0); MCV 94.8 fL (80.0-100.0); MPV 8.2 fl. (7.2-11.1); RBC 4.15 mil/uL (4.50-6.00); RDW-CV 14.6 % (10.5-14.5); WBC 4.4 thou/uL (4.0-11.0)
--- NOTE | 2019-02-17 05:43 | NUR ---
PT SLEPT FAIRLY WELL OVERNIGHT. NO COMPLAINTS OF PAIN OR PROBLEMS. HS ACCUCHECK 170, INSULIN GIVEN WITH SNACK. USING URINAL TO VOID. LFA IVF INFUSING PER PUMP. AM LABS DRAWN. TELE SR BBB. ABLE TO USE CALL LITE AND MAKE NEEDS KNOWN. CALL LITE IN EASY REACH, BED ALARM ON FOR SAFETY.
[2019-02-17 05:52] LABS: ALBUMIN 2.8 g/dL (3.4-5.0); CALCIUM 8.3 mg/dL (8.5-10.1); MAGNESIUM 1.5 mg/dL (1.8-2.4); POTASSIUM 4.1 mmol/L (3.5-5.1); TOTAL BILIRUBIN 0.3 mg/dL (<0.1-1.0); TOTAL PROTEIN 5.9 g/dL (6.4-8.2)
--- NOTE | 2019-02-17 13:09 | NUR ---
Nutrition: Consulted for poor po intake. Pt was eating lunch at visit. Reported normal appetite, denied any acute nutrition concerns, no requests or complaints. Wt stable from last admit in October. Albumin low, was WNL initially. Assess at normal/low nutrition risk.
--- NOTE | 2019-02-17 14:46 | NUR ---
JUDIE met with Sarita from [facility] and then with Karley from [facility] about pt dc planning. Pt lived in home alone that was not a health living environment; reportedly, pt home had bed bugs and was a hoarding situation. Sarita said that pt was being considered for their LONG-TERM but Sarita would not be able to accept for certain and would be discussing with [facility] administration before final decision on whether or not pt could be accepted at [facility]. Sarah wants to be kept in the loop for pt safe dc planning. SW to continue to follow.
--- NOTE | 2019-02-17 18:02 | NUR ---
Patient awake in bed. Patient ambulating with stand by assistance with walker and gait belt this evening. Received telephone order from Dr. Plascencia for ativan. Verified with read back. CIWA assessment completed as documented. Patient denies further needs at this time. All safety measures maintained.
[2019-02-18 03:40] VITALS: BP 128/80
--- NOTE | 2019-02-18 05:45 | NUR ---
PATIENT SLEPT MOST OF THE NIGHT. PATIENT REPORTED LOOSE STOOLS AND MAGNESIUM HAD GONE DOWN TO 1.3 AFTER TWO DOSES OF MAG WERE GIVEN YESTERDAY. MAG WAS REPLACED IV INSTEAD AND CAME UP TO 1.9 THIS MORNING. IV REMAINS SALINE LOCKED. WILL CONTINUE TO MONITOR.
[2019-02-18 07:50] VITALS: BP 134/79
[2019-02-18 15:21] VITALS: BP 134/79
[2019-02-18 15:31] VITALS: BP 134/79
--- NOTE | 2019-02-18 15:54 | NUR ---
ORDERS NOTED FOR DC HOME WITH HH. PT DOESN'T QUALIFY FOR SNF, AMBULATED LONG DISTANCE WELL WITH THERAPY. MULTIPLE DISCUSSIONS WITH [facility] AND [facility] AND YECENIA. PT DOESN'T QUALIFY FOR SNF OR LTC PER [facility]. YECENIA SPOKE WITH PT ABOUT ASSISTED LIVING AT [facility]. PER YECENIA AND PT, PT HAS 'THINGS TO WORK ON AND WANTS TO CONSIDER IT' FOR NOW. PT TO DC HOME WITH HH TODAY. WAS ABLE TO ARRANGE FOR YOLANDA AT HOME TO SEE PT AT HOME, HE IS IN AGREEMENT WITH THAT. PER [facility], THEY ARE WORKING ON ASSISTING PT WITH GETTING HIS HOME CLEANED OUT AND A CAR MOVED. [facility] DID STATE PT IS 'HOARDER' BUT HAS RUNNING WATER, FUNCTIONING TOILET AND COT TO SLEEP ON. PT CONFIRMED THIS. CAB VOUCHER PROVIDED FOR PT TO RETURN HOME [facility]. PT STATES HE HAS GROCERIES AT HOME. TALKED WITH HIM ABOUT HIS ETOH INTAKE AND HE STATES HE HAS 'REALLY CUT BACK.' LEFT VMAIL FOR STEVEN/SANJEEV TO SEE IF STILL HAVE OPEN CASE, HAD TO LEAVE MESSAGE.
[2019-02-18 18:43] VITALS: BP 134/79
--- NOTE | 2019-02-18 18:43 | NUR ---
PATIENT DISCHARGED AT 1830 BY CAB. NO SIGNS OF DISTRESS OBSERVED. ALL SAFETY MEASURES MAINTAINED. PATIENT DENIES FUTHER NEEDS AT THIS TIME. IV REMOVED BEFORE DISCHARGE. WOUND CARE PHOTOS IN CHART. DISCHARGED PAPERWORK GIVEN TO PATIENT.
== END 2019-02-18 18:55 | disposition home health service (06) | DRG 683 ==
LOC: M.ERS 15:10 → M.TBA-ER 18:49 → M.3W 18:49
PROVIDERS: Internal Medicine; Personal Emergency Response Attendant; ADMIT Internal Medicine
DX: N17.0 Acute kidney failure with tubular necrosis (principal); E44.1 Mild protein-calorie malnutrition; E11.40 Type 2 diabetes mellitus with diabetic neuropathy, unspecified; F10.10 Alcohol abuse, uncomplicated; Z79.82 Long term (current) use of aspirin; Z79.899 Other long term (current) drug therapy; Z23 Encounter for immunization; Z68.22 Body mass index [BMI] 22.0-22.9, adult

== ENCOUNTER 2019-04-27 10:48 | Inpatient (IN) | payer MEDICARE ==
[~2019-04-27] VITALS: Ht 180.3 cm; Wt 78.2 kg
[~2019-04-27 10:48] MED LIST changes: +METFORMIN HCL500 MG PO; +NEURONTIN600 MG PO
[2019-04-27 10:55] VITALS: BP 143/92; BP 152/100
[2019-04-27 11:21] LABS: ABSOLUTE BASOPHILS 0.1 thou/uL (0.0-0.2); ABSOLUTE EOSINOPHILS 0.3 thou/uL (0.0-0.7); ABSOLUTE LYMPHOCYTES 0.7 thou/uL (0.8-5.3); ABSOLUTE MONOCYTES 0.6 thou/uL (0.0-1.2); ABSOLUTE NEUTROPHILS 4.2 thou/uL (1.6-8.1); BASOPHILS 1.2 %; HEMATOCRIT 45.7 % (42.0-52.0); HEMOGLOBIN 15.7 gm/dL (14.0-18.0); LYMPHOCYTES 12.4 %; MCH 33.2 pg (26.0-34.0); MCHC 34.3 g/dL (28.0-37.0); MCV 96.8 fL (80.0-100.0); MONOCYTES 10.7 %; MPV 7.6 fl. (7.2-11.1); NUCLEATED RBCS 0 /100WBC; PLATELET COUNT* 229 thou/uL (150-400); POLYS 70.7 %; RBC 4.72 mil/uL (4.50-6.00); RDW-CV 16.4 % (10.5-14.5); WBC 5.9 thou/uL (4.0-11.0)
[2019-04-27 11:27] LABS: CALCIUM 9.4 mg/dL (8.5-10.1); CREATININE 1.3 mg/dL (0.6-1.3); POTASSIUM 3.6 mmol/L (3.5-5.1)
[2019-04-27 11:31] LABS: APTT 26.8 Seconds (25.0-31.3); INR 1.1; PROTIME 11.1 Seconds (9.20-11.50)
[2019-04-27 11:38] LABS: ALBUMIN 3.8 g/dL (3.4-5.0); TOTAL BILIRUBIN 1.3 mg/dL (<0.1-1.0); TOTAL PROTEIN 7.9 g/dL (6.4-8.2)
[2019-04-27 11:56] LABS: URINE BLOOD NEGATIVE (Negative); URINE CLARITY CLEAR; URINE COLOR YELLOW; URINE GLUCOSE-RANDOM NEGATIVE (Negative); URINE KETONES TRACE (Negative); URINE LEUKOCYTES-REFLEX NEGATIVE (Negative); URINE PROTEIN 2+ (Negative); URINE SPECIFIC GRAVITY 1.025 (1.005-1.030)
[2019-04-27 12:05] LABS: URINE BILIRUBIN 2+ (Negative); URINE NITRITE-REFLEX POSITIVE (Negative)
[2019-04-27 12:06] LABS: ICTOTEST (BILI CONFIRMATORY) Negative (Negative)
[2019-04-27 12:08] LABS: BACTERIA-REFLEX 1-9 Few /HPF (None Seen); CASTS None Seen /LPF (None Seen); CRYSTALS None Seen /LPF (None Seen); MUCUS 0-3 Light strn/LPF (None Seen); SQUAMOUS 0-3 Few /LPF (0-3); URINE RBC 0-2 Rare /HPF (0-2); URINE WBC-REFLEX 0-5 Rare /HPF (0-5)
[2019-04-27 14:29] VITALS: BP 144/84
--- NOTE | 2019-04-27 14:30 | NUR ---
ADMIT TO 208 TELEPHONE REPORT GIVEN PRIOR TO ADMIT PATIENT UP VIA CART SBA ASSIST WITH WALKER FROM HOME TO BED ORIENTED TO RM AND CLL LIGHT DENIES PAIN
[2019-04-27 14:45] VITALS: BP 141/88
--- NOTE | 2019-04-27 16:56 | EKG ---
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: : 1950 Requested By: Heron Fuentes Order Number: [id number] MD: Kelvin Almendarez Measurements Intervals [place] Rate: 93 P: 45 AK: 216 QRS: 31 QRSD: 130 T: -3 QT: 377 QTc: 469 Interpretive Statements Sinus rhythm Prolonged AK interval Right bundle branch block Compared to ECG 02/15/2019 15:26:25 First degree AV block now present Electronically Signed On 04-27-2019 16:56:15 GIFTED PROGRAM TEACHER by Kelvin Almendarez [email or web address] <ELECTRONICALLY SIGNED> By: Kelvin Almendarez MD, [facility] 04/27/19 2430 1102 1102 Kelvin Almendarez MD, [facility] /EPI
[2019-04-27 20:00] VITALS: BP 97/58
[2019-04-28 00:37] VITALS: BP 122/75
[2019-04-28 03:56] VITALS: BP 93/60
[2019-04-28 04:34] LABS: CALCIUM 8.3 mg/dL (8.5-10.1); CREATININE 1.2 mg/dL (0.6-1.3); HEMATOCRIT 40.1 % (42.0-52.0); MCH 33.2 pg (26.0-34.0); MCHC 33.9 g/dL (28.0-37.0); MCV 97.7 fL (80.0-100.0); MPV 7.9 fl. (7.2-11.1); NUCLEATED RBCS 0 /100WBC; PLATELET COUNT* 186 thou/uL (150-400); POTASSIUM 3.7 mmol/L (3.5-5.1); RBC 4.11 mil/uL (4.50-6.00); RDW-CV 16.4 % (10.5-14.5); WBC 4.3 thou/uL (4.0-11.0)
[2019-04-28 04:51] LABS: HEMOGLOBIN 13.6 gm/dL (14.0-18.0)
--- NOTE | 2019-04-28 05:04 | NUR ---
PT MAINTAINING 02 SATS ON RA. NO C/O DIZZINESS. PT IS VIEJAS. NO CURRENT NEEDS HAVE BEEN MET AT THIS TIME. CURRENTLY ASLEEP WITH BED ALARM ON AND CALL LIGHT WITHIN REACH.
[2019-04-28 06:13] LABS: ABSOLUTE EOSINOPHILS 0.6 thou/uL (0.0-0.7); ABSOLUTE LYMPHOCYTES 1.1 thou/uL (0.8-5.3); ABSOLUTE MONOCYTES 0.2 thou/uL (0.0-1.2); ABSOLUTE NEUTROPHILS 2.3 thou/uL (1.6-8.1); PLATELET ESTIMATE ADEQUATE
[2019-04-28 06:14] LABS: ANISOCYTOSIS 1+; POIKILOCYTOSIS 1+
[2019-04-28 08:00] VITALS: BP 133/84
--- NOTE | 2019-04-28 11:37 | 2DMMODE ---
[place] [address] 2 D/M-MODE ECHOCARDIOGRAM Name: MAME MILIAN Room: [address] IN [facility]#: [id number] Admission: 04/27/19 Attend Phys: Akash Weinberg Discharge: Date of : 46 Date of Service: 04/28/19 1137 Report #: [id number] THIS REPORT FOR: //name// APPROVED REPORT Study performed: 04/28/2019 09:09:32 EXAM: Comprehensive 2D, Doppler, and color-flow Echocardiogram Patient Location: In-Patient Room #: [facility] Status: routine BSA: 1.89 HR: 73 bpm BP: 93/60 mmHg Rhythm: NSR Other Information Study Quality: Good Indications Palpitations Volumes Left Atrial Volume (Systole) LA ESV Index: 21.80 mL/m2 Left Ventricle The left ventricle is normal size. There is normal LV segmental wall motion. There is normal left ventricular wall thickness. Left ventricular systolic function is normal. The left ventricular ejection fraction is within the normal range. LVEF is 60-65%. Grade I - abnormal relaxation pattern. Right Ventricle The right ventricle is normal size. The right ventricular systolic function is normal. Atria The left atrium size is normal. The right atrium size is normal. Aortic Valve The aortic valve is normal in structure. No aortic regurgitation is present. There is no [place] [address] 2 D/M-MODE ECHOCARDIOGRAM Name: MAME MILIAN Room: [address] IN M.R.#: [id number] Admission: 04/27/19 Attend Phys: Akash Weinberg Discharge: Date of : 46 Date of Service: 04/28/19 1137 Report #: [id number] Mitral Valve The mitral valve is normal in structure. There is no mitral valve regurgitation noted. No evidence of mitral valve stenosis. Tricuspid Valve The tricuspid valve is normal in structure. No pulmonary hypertension. Trace tricuspid regurgitation. Pulmonic Valve The pulmonary valve is normal in structure. There is no pulmonic valvular regurgitation. Great Vessels The aortic root is normal in size. IVC is normal in size and collapses >50% with inspiration. Pericardium There is no pericardial effusion. <Conclusion> Left ventricular systolic function is normal. The left ventricular ejection fraction is within the normal range. <ELECTRONICALLY SIGNED> By: Kelvin Almendarez MD, [facility] 04/28/19 1137 1137 1137 Kelvin Almendarez MD, FACC /INF
[2019-04-28 11:41] VITALS: BP 134/83
--- NOTE | 2019-04-28 14:36 | NUR ---
Pt is A&O. Resides at home alone. Known to this CM from previous hospital stay. Pt is a hoarder, hx of [facility] involvement. Pt independent, depends on [employer] for transportation. Hx of [facility] . [facility] follows. Hx of skilled at [facility]. Goal is home at ct. CM trying to find out if Pt is eligible to enroll in a Part D plan, since open enrollment is closed for the 2019.
[2019-04-28 15:46] VITALS: BP 117/77
[2019-04-28 20:00] VITALS: BP 122/74
[2019-04-29] VITALS (8 sets, daily range): BP systolic 118–133; BP diastolic 65–85
--- NOTE | 2019-04-29 03:57 | NUR ---
PT STATED NO C/O PAIN OR DISCOMFORT. MAINTAINING O2 ON RA. VSS. CURRENTLY ASLEEP IN BED WITH BED ALARM ON AND CALL LIGHT WITHIN REACH. ALL NEEDS HAVE BEEN MET AT THIS TIME.
--- NOTE | 2019-04-29 10:47 | NUR ---
CM found out that Part D can only be added during open enrollment, unless a skilled stay is had or Pt agrees to switch to an Advantage plan. CM costed Pt's home meds, Pt is only on 3 meds at home. CM printed [employer] coupons for Pt's meds, total came to $55.25. Pt states that he is able to afford his meds and plans to return home at [place]. Per Dr, son wants Pt to go to [facility], CM informed Dr that [facility] placements are arranged through Pt/family and informed that [facility] is at an out of pocket cost and not covered by insurance.
[2019-04-29] MEDS ORDERED: METFORMIN HCL500 MG PO (11:09)
[2019-04-29] MEDS ORDERED: NEURONTIN600 MG PO (11:09)
[2019-04-29] MEDS ORDERED: MECLIZINE HCL25 M1 PO (11:09)
--- NOTE | 2019-04-29 19:00 | NUR ---
ASSUMED PT CARE AT 0700, PT A&O X4, VSS, FULL ASSESSMENT CHARTED. PT DISCHARGED AT APPROX 1850, EDUCATED ON ALL DISCHARGE INSTRUCTIONS INCLUDING FOLLOW UP APPOINTMENTS AND MEDICATIONS. IV AND BACK END ARCHITECT REMOVED, HOURLY ROUNDING COMPLETED.
== END 2019-04-29 18:56 | disposition home or self-care (01) | DRG 74 ==
LOC: M.ERS 10:48 → M.2W 13:14 → M.TBA-ER 13:14 → M.2W 14:44
PROVIDERS: Family Medicine; ADMIT Internal Medicine
DX: E11.42 Type 2 diabetes mellitus with diabetic polyneuropathy (principal); F10.10 Alcohol abuse, uncomplicated; Z79.4 Long term (current) use of insulin; Z82.49 Family history of ischemic heart disease and other diseases of the circulatory system; Z23 Encounter for immunization; Z79.899 Other long term (current) drug therapy

== ENCOUNTER 2019-05-07 11:42 | Inpatient (IN) | payer MEDICARE ==
[~2019-05-07] VITALS: Ht 180.3 cm; Wt 78.9 kg
[~2019-05-07 11:42] MED LIST changes: +MECLIZINE HCL25 M1 PO
[2019-05-07 11:59] VITALS: BP 151/103
[2019-05-07 12:41] LABS: ABSOLUTE EOSINOPHILS 0.1 thou/uL (0.0-0.7); ABSOLUTE LYMPHOCYTES 0.8 thou/uL (0.8-5.3); ABSOLUTE MONOCYTES 0.4 thou/uL (0.0-1.2); ABSOLUTE NEUTROPHILS 2.2 thou/uL (1.6-8.1); BASOPHILS 0.9 %; EOSINOPHILS 2.7 %; HEMOGLOBIN 15.2 gm/dL (14.0-18.0); LYMPHOCYTES 23.1 %; MCH 33.4 pg (26.0-34.0); MCHC 33.8 g/dL (28.0-37.0); MCV 98.9 fL (80.0-100.0); MONOCYTES 10.6 %; NUCLEATED RBCS 0 /100WBC; PLATELET COUNT* 241 thou/uL (150-400); POLYS 62.7 %; RBC 4.55 mil/uL (4.50-6.00); RDW-CV 16.1 % (10.5-14.5); WBC 3.6 thou/uL (4.0-11.0)
[2019-05-07 12:59] LABS: ALCOHOL 64 mg/dL (<10)
[2019-05-07 13:00] LABS: ACETAMINOPHEN < 2 ug/mL (10-30)
[2019-05-07 13:25] LABS: ANION GAP 18 mmol/L (7-16); BUN 15 mg/dL (7-18); CALCIUM 8.8 mg/dL (8.5-10.1); CHLORIDE 104 mmol/L (98-107); CO2 19 mmol/L (21-32); CREATININE 1.1 mg/dL (0.6-1.3); GLUCOSE 101 mg/dL (70-99); POTASSIUM 4.5 mmol/L (3.5-5.1); SODIUM 141 mmol/L (136-145)
[2019-05-07 13:30] LABS: ALBUMIN 3.5 g/dL (3.4-5.0); ALKALINE PHOSPHATASE 156 U/L (46-116); SGOT 27 U/L (15-37); SGPT 22 U/L (30-65); TOTAL BILIRUBIN 0.8 mg/dL (<0.1-1.0); TOTAL PROTEIN 6.9 g/dL (6.4-8.2)
[2019-05-07 14:40] LABS: APTT 23.1 Seconds (25.0-31.3); PROTIME 10.7 Seconds (9.20-11.50)
[2019-05-07 14:48] LABS: URINE BILIRUBIN NEGATIVE (Negative); URINE BLOOD TRACE (Negative); URINE CLARITY CLEAR; URINE COLOR YELLOW; URINE GLUCOSE-RANDOM NEGATIVE (Negative); URINE LEUKOCYTES-REFLEX NEGATIVE (Negative); URINE NITRITE-REFLEX NEGATIVE (Negative); URINE PROTEIN 2+ (Negative); URINE SPECIFIC GRAVITY >= 1.030 (1.005-1.030); URINE UROBILINOGEN 0.2 E.U./dl (0.2-1.0)
[2019-05-07 14:49] LABS: URINE KETONES 3+ (Negative)
--- NOTE | 2019-05-07 14:50 | NUR ---
REPORT GIVEN TO ROBBIE BARAKAT WHO IS TO ASSUME PT CARE INPATIENT NURSE.
[2019-05-07 14:51] VITALS: BP 154/86
[2019-05-07 14:56] LABS: AMP/METHAMP Negative (Negative); BARBITURATES Negative (Negative); BENZODIAZEPINES Negative (Negative); COCAINE Negative (Negative); METHADONE Negative (Negative); OPIATES Negative (Negative); PCP Negative (Negative); THC Negative (Negative)
[2019-05-07 14:58] LABS: HYALINE CASTS 4-10 Moderate /LPF (None Seen); MUCUS None Seen strn/LPF (None Seen); SQUAMOUS 0-3 Few /LPF (0-3)
[2019-05-07 14:59] LABS: BACTERIA-REFLEX 1-9 Few /HPF (None Seen); CRYSTALS None Seen /LPF (None Seen); URINE RBC 0-2 Rare /HPF (0-2); URINE WBC-REFLEX None Seen /HPF (0-5)
--- NOTE | 2019-05-07 15:17 | EKG ---
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: : 1950 Requested By: Jenny Herrera Order Number: [id number] Pelon MARQUEZ: Johny Marin Measurements Intervals [place] Rate: 103 P: 15 MT: 187 QRS: 21 QRSD: 133 T: -14 QT: 367 QTc: 481 Interpretive Statements Sinus tachycardia Right bundle branch block Compared to ECG 04/27/2019 11:02:09 Sinus rate has increased First degree AV block no longer present Electronically Signed On 05-07-2019 15:17:26 STEWARD/STEWARD[employer]OUNGE by Johny Marin [email or web address] <ELECTRONICALLY SIGNED> By: Johny Marin MD, [facility] 05/07/19 1517 1200 1200 Johny Marin MD, [facility] /EPI
[2019-05-07 15:20] VITALS: BP 157/89
--- NOTE | 2019-05-07 16:24 | NUR ---
RECEIVED PT FROM ER AT 1520. GET SITUATED TO ROOM. TELE IN PLACED TRACING SINUS RHYTHM. PT DENIES PAIN. PT BED BATH GIVEN. PT ADMISSION ASSESSMENT CHARTED. PT AOX4, BEDREST, O2 SAT 90'S RA. PT LAST BM TODAY. HOURLY ROUNDING, CALL LIGHT WITHIN REACH, WILL CONTINUE TO MONITOR.
[2019-05-07 19:10] LABS: CALCIUM 8.9 mg/dL (8.5-10.1); MAGNESIUM 1.6 mg/dL (1.8-2.4)
[2019-05-08] VITALS: BP 128/85
[2019-05-08 04:00] VITALS: BP 146/84
[2019-05-08 07:30] VITALS: BP 142/86
--- NOTE | 2019-05-08 07:35 | NUR ---
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
[2019-05-08 08:06] LABS: ABSOLUTE EOSINOPHILS 0.2 thou/uL (0.0-0.7); ABSOLUTE LYMPHOCYTES 0.7 thou/uL (0.8-5.3); ABSOLUTE MONOCYTES 0.3 thou/uL (0.0-1.2); ABSOLUTE NEUTROPHILS 1.7 thou/uL (1.6-8.1); BASOPHILS 1.4 %; EOSINOPHILS 6.9 %; HEMATOCRIT 40.8 % (42.0-52.0); HEMOGLOBIN 13.9 gm/dL (14.0-18.0); LYMPHOCYTES 22.9 %; MCH 33.3 pg (26.0-34.0); MCHC 34.2 g/dL (28.0-37.0); MCV 97.5 fL (80.0-100.0); MONOCYTES 10.6 %; MPV 7.9 fl. (7.2-11.1); NUCLEATED RBCS 0 /100WBC; POLYS 58.2 %; RBC 4.18 mil/uL (4.50-6.00); RDW-CV 15.6 % (10.5-14.5)
[2019-05-08 08:08] LABS: PLATELET COUNT* 137 thou/uL (150-400)
--- NOTE | 2019-05-08 11:46 | NUR ---
ASSUMED PT CARE AT 0800, AOX4, UP WITH ASSIST, O2 SAT 90'S RA. TRACING SINUS RHTYHM ON TELE. PT DENIES PAIN. PT STATE HAVING HALLUCINATION. PT FOR PT/OT. VSS, AM ASSESSMENT CHARTED, MEDS GIVEN PER MAR, WILL CONTINUE TO MONITOR.
[2019-05-08 11:53] LABS: CALCIUM 9.4 mg/dL (8.5-10.1); MAGNESIUM 1.6 mg/dL (1.8-2.4); POTASSIUM 3.5 mmol/L (3.5-5.1)
[2019-05-08 12:00] VITALS: BP 136/82
[2019-05-08 16:00] VITALS: BP 127/83
[2019-05-08 19:20] VITALS: BP 136/84
[2019-05-09] VITALS: BP 132/81
[2019-05-09 04:00] VITALS: BP 130/80
[2019-05-09 04:33] LABS: MCH 33.6 pg (26.0-34.0); MCHC 34.2 g/dL (28.0-37.0); NUCLEATED RBCS 0 /100WBC; PLATELET COUNT* 109 thou/uL (150-400); RBC 3.88 mil/uL (4.50-6.00); RDW-CV 15.6 % (10.5-14.5); WBC 2.9 thou/uL (4.0-11.0)
[2019-05-09 04:44] LABS: CALCIUM 9.2 mg/dL (8.5-10.1); CREATININE 1.1 mg/dL (0.6-1.3); POTASSIUM 3.8 mmol/L (3.5-5.1)
[2019-05-09 06:13] LABS: ABSOLUTE EOSINOPHILS 0.4 thou/uL (0.0-0.7); ABSOLUTE LYMPHOCYTES 0.5 thou/uL (0.8-5.3); ABSOLUTE MONOCYTES 0.1 thou/uL (0.0-1.2); ABSOLUTE NEUTROPHILS 1.8 thou/uL (1.6-8.1); PLATELET ESTIMATE ADEQUATE
--- NOTE | 2019-05-09 06:50 | NUR ---
ASSUMED PT CARE AT 1900. PT AAOX4. VOICED NO CONCERNS THIS SHIFT. SR WITH 1D ON SURVEYOR. HOURLY ROUNDING COMPLETED. HIGH FALL PRECAUTIONS IN PLACE. CIWA <8 THIS SHIFT. CALL LIGHT WITHIN REACH.
[2019-05-09 08:00] VITALS: BP 145/87
[2019-05-09 11:42] VITALS: BP 144/85
--- NOTE | 2019-05-09 14:17 | NUR ---
ASSUMED PT CARE AT 0800, AOX4, HARD OF HEARING, UP WITH ASSIST, O2 SAT 90'S RA. TRACING SINUS RHYTHM, 1ST DEGREE AVB ON TELE. PT DENIES PAIN. STATE HAVING SOME HALLUCINATION. PT HAS TELEPSYCHE CONSULT. VSS, AM ASSESSMENT CHARTED, MEDS GIVEN PER MAR, CALL LIGHT WITHIN REACH, WILL CONTINUE TO MONITOR.
[2019-05-09 16:03] VITALS: BP 144/90
[2019-05-09 20:00] VITALS: BP 160/93
[2019-05-10] VITALS: BP 148/90
[2019-05-10 04:00] VITALS: BP 137/86
[2019-05-10 04:29] LABS: ABSOLUTE EOSINOPHILS 0.4 thou/uL (0.0-0.7); ABSOLUTE LYMPHOCYTES 0.7 thou/uL (0.8-5.3); ABSOLUTE MONOCYTES 0.3 thou/uL (0.0-1.2); ABSOLUTE NEUTROPHILS 2.5 thou/uL (1.6-8.1); EOSINOPHILS 9.8 %; HEMATOCRIT 38.5 % (42.0-52.0); HEMOGLOBIN 13.1 gm/dL (14.0-18.0); LYMPHOCYTES 18.8 %; MCH 33.5 pg (26.0-34.0); MCV 98.5 fL (80.0-100.0); MONOCYTES 7.1 %; MPV 8.4 fl. (7.2-11.1); NUCLEATED RBCS 0 /100WBC; PLATELET COUNT* 103 thou/uL (150-400); POLYS 63.3 %; RBC 3.91 mil/uL (4.50-6.00); RDW-CV 15.5 % (10.5-14.5)
[2019-05-10 04:38] LABS: CALCIUM 8.8 mg/dL (8.5-10.1); CREATININE 1.1 mg/dL (0.6-1.3); POTASSIUM 3.9 mmol/L (3.5-5.1)
--- NOTE | 2019-05-10 05:09 | NUR ---
PT VERY FLAT THIS SHIFT. NO C/O PAIN OR DISCOMFORT NOTED. HAS BEEN ABLE TO SLEEP MAJORITY OF THIS SHIFT. CURRENTLY ASLEEP IN BED WITH BED ALARM ON AND CALL LIGHT WITHIN REACH.
[2019-05-10 07:23] VITALS: BP 149/90
--- NOTE | 2019-05-10 08:26 | NUR ---
ASSUMED CARE OF PT THIS AM AROUND 714- HOSE MAKER IN PLACE ORDERED, TRACING SR-UPON ASSESSMENT PT NOTED TO BE RESTING IN BED, WATCHING TV- PT A&O X4, YAVAPAI-APACHE- CONTINENT OF B/B- AX1 WITH TRANSFERS- LCTA, DIMINISHED IN BASES- RESP EVEN AND UN-LABORED- NON-PRODUCTIVE COUGH NOTED- VSS, O2 SAT 96% ON RA- ABD SOFT/ROUND/NON-TENDER, BS X4 QUADS-LAST BM REPORTED X2 DAYS AGO- BS MONITORED ORDERED, CONTROLLED PER ORAL MEDS- IV NOTED TO LEFT HAND INTACT, IVF INFUSSING PRESCIBED- PT DENIES ANY C/O PAIN/DISCOMFORT AT THIS TIME- CALL LIGHT AND PERSONAL BELONGINGS WITH IN REACH- HOURLY ROUNDS IN PLACE R/T SAFETY/NEEDS- ALL NEEDS MET AT THIS TIME-WCTM
[2019-05-10 11:54] VITALS: BP 149/84
[2019-05-10 16:00] VITALS: BP 152/82
--- NOTE | 2019-05-10 16:31 | NUR ---
MET WITH PT TO DISCUSS HOME SITUATION/DC PLANNING. PT KNOWN TO CM FROM PREVIOUS STAYS, WAS JUST HERE WITHIN THE LAST MONTH. PT STATES HE WENT HOME AND 'DRANK TOO MUCH.' HE HAS HAD HH WITH [facility] AND [facility] WHO ASSISTED HIM IN CLEANING UP HIS HOME, PT IS A HOARDER. PT HAS BEEN TO SNF IN PAST ALSO TO [facility], PER UZIEL, THEY ARE NOT ABLE TO ACCEPT BACK. PT STATES HE WAS ALSO AT [facility]. HE IS WILLING TO CONSIDER IT AGAIN. CALLED AND FAXED REFERRAL TO TAMIE. SHE WILL COME OUT TO SCREEN PT. WILL FOLLOW
[2019-05-10 20:00] VITALS: BP 153/91
[2019-05-11] VITALS: BP 138/83
[2019-05-11 04:00] VITALS: BP 148/89
--- NOTE | 2019-05-11 06:18 | NUR ---
ASSUMED CARE OF PT AFTER REPORT AT 1930. PT A&OX4. VSS. PHYSICAL ASSESSMENT COMPLETED AND CHARTED. PT ON RA. PT TRACING SR/1ST DEG/BBB ON TELE. PT UP WITH 1 ASSIST. PT DENIES ANY PAIN OR DISCOMFORT. CIWA CHARTED. PT ABLE TO SLEEP WELL ON BED. CALL MARCOS SANTIAGO.
[2019-05-11 08:00] VITALS: BP 138/85
[2019-05-11] MEDS ORDERED: PRENATAL PO (10:04)
[2019-05-11] MEDS ORDERED: SEROQUEL 50 MG50 MG PO (10:04)
[2019-05-11] MEDS ORDERED: ESCITALOPRAM OX10 MG PO (10:04)
[2019-05-11 10:50] VITALS: BP 138/85
[2019-05-11 12:11] VITALS: BP 137/77
--- NOTE | 2019-05-11 14:02 | NUR ---
ORDERS RECEIVED FOR DC TO SNF. MET [facility] PT AND SPOKE WITH TAMIE/[facility]. THEY CAN ACCEPT PT TODAY, PT IN AGREEMENT. SHE SET UP W/C VAN FOR 2PM, CHART COPIED AND ORDERS FAXED TO IR [phone] RN HAS NUMBER TO CALL REPORT. NO FAMILY TO NOTIFY OF DC.
--- NOTE | 2019-05-11 14:30 | NUR ---
ASSUMED PT CARE AT 0730. ASSESSMENT COMPLETED CHARTED. ABLE TO MAKE NEEDS KNOWN. UP WITH 1 ASSIST, USES URINAL. NO C/O PAIN OR DISCOMFORT. RESTING IN BED MOST OF THE DAY. DISCHARGE APPROVED AND DISCHARGE PAPERWORK GIVEN TO TRANSPORT AROUND 1420. PT TRYING TO GATHER REST OF STUFF AT THIS TIME AND WORKING WITH P.T. IV AND HEART MONITOR REMOVED. CALLING TO GIVE REPORT AT THIS TIME. ALL PT BELONGINGS WITH HIM. TAKEN OUT BY WHEELCHAIR AT AROUND 1437 BY TRANSPORTER. NO COMMENTS, QUESTIONS, OR CONCERNS NOTED
--- NOTE | 2019-05-14 13:50 | CON ---
[address] [address] CONSULTATION Name: MAME MILIAN Room: [address] IN M.R.#: [id number] Admission: 05/07/19 Attend Phys: Rodrigo Griffiths Discharge: 05/11/19 Date of : 46 Report #: [id number] THIS REPORT FOR: //name// CC: Kelvin Weinberg DATE OF SERVICE: 05/10/2019 HISTORY OF PRESENT ILLNESS: A 68-year-old male patient, who was evaluated by me for what looks like alcohol-related problems. I reviewed the patient's record, which is longstanding and he has been in this hospital for multiple episodes regarding his alcohol problem. Presently, he was not very happy. He wants to eat and he indicates that everybody keeps interrupting him. He had some altered mental status as I understand from the records. He had alcohol withdrawal. He had some hallucination. He indicates everything is feeling better. To me, he denies hallucinations, but he is not very cooperative and maybe saying that, so that I can leave and he can eat. REVIEW OF SYSTEMS: Positive for multiple problems. He has a history of diabetes, alcohol and he has a history of depression and leukopenia. That was his relevant 14-point review of system. PAST MEDICAL HISTORY: Positive for multiple admissions, mostly related to alcohol. He also had some admissions related to possible strokes. FAMILY HISTORY: Unremarkable. SOCIAL HISTORY: He drinks alcohol, but will not ____ how much he drinks. PHYSICAL EXAMINATION: Indicate it is difficult. He does not cooperate. He is alert. He is responsive. He can follow simple command. He did not cooperate with memory testing and fund of knowledge testing. Cranial nerve examination 2-12 was attempted. He did not count the finger properly, but I do not know whether that is intentional or not. He moves all 4 extremities. He said he can appreciate the touch. His tone looks symmetrical. He did not do cerebellar sign or did not cooperate with the fundus examination. Blood pressure is 149/90, respiration is 20, pulse is 73, temperature is 97.3. LABORATORY DATA: Hemoglobin is 13.1. His vitamin B12 is on the lower side at 214. He did have an MRI, which does not show any acute changes. IMPRESSION: This patient's all the symptoms appear to be alcohol related. He needs to stop drinking alcohol, but he has been counseled so many times. It is unlikely he will do that. He was counseled again. His MRI has not changed much. We can continue to watch and see how he [place] [address] CONSULTATION Name: MAME MILIAN Akhil Room: [address] IN M.R.#: [id number] Admission: 05/07/19 Attend Phys: Rodrigo Griffiths Discharge: 05/11/19 Date of : 46 Report #: [id number] neurologically we need to do much on him and I will suggest just holding his Seroquel if his hallucinations are under control and making it p.r.n. <ELECTRONICALLY SIGNED> By: Kun Russell MD 05/14/19 1350 1109 0021Pramin Russell MD /nt
== END 2019-05-11 14:42 | DRG 896 ==
LOC: M.ERS 11:42 → M.TBA-ER 14:13 → M.2W 14:13
PROVIDERS: Personal Emergency Response Attendant; ADMIT Internal Medicine
DX: F10.129 Alcohol abuse with intoxication, unspecified (principal); G92 Toxic encephalopathy; R65.11 Systemic inflammatory response syndrome (SIRS) of non-infectious origin with acute organ dysfunction; E46 Unspecified protein-calorie malnutrition; F41.9 Anxiety disorder, unspecified; E11.36 Type 2 diabetes mellitus with diabetic cataract; I65.1 Occlusion and stenosis of basilar artery; D64.9 Anemia, unspecified; F32.9 Major depressive disorder, single episode, unspecified; D72.819 Decreased white blood cell count, unspecified; R82.4 Acetonuria; R10.9 Unspecified abdominal pain; E11.42 Type 2 diabetes mellitus with diabetic polyneuropathy; G31.84 Mild cognitive impairment of uncertain or unknown etiology; Z83.3 Family history of diabetes mellitus; Z79.899 Other long term (current) drug therapy; Z82.49 Family history of ischemic heart disease and other diseases of the circulatory system; Z68.24 Body mass index [BMI] 24.0-24.9, adult; Y90.3 Blood alcohol level of 60-79 mg/100 ml

== ENCOUNTER 2019-08-08 16:47 | Inpatient (IN) | payer MEDICARE ==
[~2019-08-08] VITALS: Ht 172.7 cm; Wt 74.4 kg
[~2019-08-08 16:47] MED LIST changes: +ESCITALOPRAM OX10 MG PO; +SEROQUEL 50 MG50 MG PO
[2019-08-08 16:49] VITALS: BP 104/58
--- NOTE | 2019-08-08 17:09 | NUR ---
PT VERY COBATIVE AND WILL NOT ALLOW STAFF TO GET HIS VITALS OR OBTAIN EKG OR IV. MEDS GIVEN TO HELP CALM PATIENT.
[2019-08-08 18:05] LABS: ABSOLUTE EOSINOPHILS 0.2 thou/uL (0.0-0.7); ABSOLUTE MONOCYTES 0.4 thou/uL (0.0-1.2); BASOPHILS 0.3 %; EOSINOPHILS 6.1 %; HEMATOCRIT 42.8 % (42.0-52.0); HEMOGLOBIN 14.4 gm/dL (14.0-18.0); LYMPHOCYTES 28.6 %; MCH 32.1 pg (26.0-34.0); MCHC 33.6 g/dL (28.0-37.0); MCV 95.7 fL (80.0-100.0); MONOCYTES 9.8 %; MPV 7.7 fl. (7.2-11.1); NUCLEATED RBCS 0 /100WBC; PLATELET COUNT* 203 thou/uL (150-400); POLYS 55.2 %; RBC 4.48 mil/uL (4.50-6.00); RDW-CV 14.4 % (10.5-14.5); WBC 3.6 thou/uL (4.0-11.0)
[2019-08-08 18:15] LABS: APTT 26.7 Seconds (25.0-31.3); INR 1.1; POTASSIUM 3.4 mmol/L (3.5-5.1)
[2019-08-08 18:27] LABS: ALBUMIN 3.3 g/dL (3.4-5.0); TOTAL BILIRUBIN 0.3 mg/dL (<0.1-1.0); TOTAL PROTEIN 6.7 g/dL (6.4-8.2)
[2019-08-08 18:37] LABS: ACETAMINOPHEN < 2 ug/mL (10-30); ALCOHOL 247 mg/dL (<10); SALICYLATE 2.8 mg/dL (2.8-20.0)
--- NOTE | 2019-08-08 18:48 | NUR ---
PT TO CT WITH FIELD SUPPORT REPRESENTATIVE.
[2019-08-08 20:37] LABS: URINE BILIRUBIN NEGATIVE (Negative); URINE BLOOD NEGATIVE (Negative); URINE CLARITY CLEAR; URINE COLOR YELLOW; URINE GLUCOSE-RANDOM NEGATIVE (Negative); URINE KETONES NEGATIVE (Negative); URINE LEUKOCYTES-REFLEX NEGATIVE (Negative); URINE NITRITE-REFLEX NEGATIVE (Negative); URINE PROTEIN NEGATIVE (Negative); URINE SPECIFIC GRAVITY 1.015 (1.005-1.030); URINE UROBILINOGEN 0.2 E.U./dl (0.2-1.0)
[2019-08-08 20:45] LABS: AMP/METHAMP Negative (Negative); BARBITURATES Negative (Negative); BENZODIAZEPINES Negative (Negative); COCAINE Negative (Negative); METHADONE Negative (Negative); OPIATES Negative (Negative); PCP Negative (Negative); THC Negative (Negative)
[2019-08-09] VITALS (7 sets, daily range): BP systolic 108–142; BP diastolic 63–83
--- NOTE | 2019-08-09 05:06 | NUR ---
RECEIVED REPORT FROM ER AND ASSUMED CARE OF PATIENT. PATIENT IS CONFUSED, AWAKE. HE IS DROWSY. UNABLE TO ANSWER QUESTIONS APPROPRIATELY. UNABLE TO OBTAIN HISTORY. CALL LIGHT WITHIN REACH
--- NOTE | 2019-08-09 06:36 | NUR ---
ELEVATED LACTIC ACID DISCUSSED WITH DR. MARTÍNEZ THIS MORNING APPROX 0620. LACTIC IS TRENDING DOWN. NO NEW ORDERS RECEIVED.
[2019-08-09 07:45] LABS: HEMATOCRIT 39.6 % (42.0-52.0); HEMOGLOBIN 13.2 gm/dL (14.0-18.0); MCH 32.1 pg (26.0-34.0); MCHC 33.3 g/dL (28.0-37.0); MCV 96.3 fL (80.0-100.0); MPV 8.3 fl. (7.2-11.1); RBC 4.11 mil/uL (4.50-6.00); RDW-CV 14.4 % (10.5-14.5); WBC 4.9 thou/uL (4.0-11.0)
[2019-08-09 07:50] LABS: CALCIUM 7.3 mg/dL (8.5-10.1); CREATININE 0.9 mg/dL (0.6-1.3); POTASSIUM 3.6 mmol/L (3.5-5.1)
--- NOTE | 2019-08-09 10:14 | EKG ---
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: [place] : 1950 Requested By: Dequan Lord Order Number: [id number] MD: Kelvin Almendarez Measurements Intervals [place] Rate: 80 P: 78 ND: 238 QRS: 28 QRSD: 133 T: -6 QT: 417 QTc: 482 Interpretive Statements Sinus rhythm Prolonged ND interval Right bundle branch block Baseline wander in lead(s) V2,V3,V4 Compared to ECG 05/07/2019 12:00:17 First degree AV block now present Sinus tachycardia no longer present Electronically Signed On 08-09-2019 10:13:25 CDT by Kelvin Almendarez [email or web address] <ELECTRONICALLY SIGNED> By: Kelvin Almendarez MD, FACC 08/09/19 1013 33 33 Kelvin Almendarez MD, FAC /EPI
--- NOTE | 2019-08-09 16:41 | NUR ---
CM called into Pt's room, no answer will attempt again tomorrow. Pt has no family to contact.
--- NOTE | 2019-08-09 17:01 | NUR ---
PT A&Ox2-3. UP WITH STB USING WALKER. IV PATENT, INFUSING. TOLERATING DIET. DENIED PAIN. PT HAS BEEN CALM THROUGHOUT SHIFT. FALL PRECAUTIONS IN PLACE. CALL LIGHT WITHIN REACH. WILL CONTINUE TO MONITOR.
[2019-08-10 00:28] VITALS: BP 119/69
[2019-08-10 04:39] LABS: HEMATOCRIT 34.6 % (42.0-52.0); MCH 32.8 pg (26.0-34.0); MCHC 34.6 g/dL (28.0-37.0); MCV 94.8 fL (80.0-100.0); MPV 8.4 fl. (7.2-11.1); RBC 3.65 mil/uL (4.50-6.00); RDW-CV 14.5 % (10.5-14.5); WBC 3.7 thou/uL (4.0-11.0)
[2019-08-10 04:52] VITALS: BP 125/75
--- NOTE | 2019-08-10 04:56 | NUR ---
PATIENT PROGRESSING TOWARDS GOALS: PATIENT ORIENTED X3-4. NO SIGNS OF ALCOHOL WITHDRAWAL. PATIENT IS RELUCTANT TO TELL STAFF HOW MUCH ALCOHOL HE CONSUMES DAILY ALTHOUGH THIS RN HAS REASSURED HIM THAT WE ONLY ASK SO THAT WE CAN PROVIDE APPROPRIATE CARE. CALL LIGHT WITHIN REACH
[2019-08-10 05:04] LABS: ALBUMIN 2.6 g/dL (3.4-5.0); CALCIUM 7.8 mg/dL (8.5-10.1); CREATININE 1.1 mg/dL (0.6-1.3); MAGNESIUM 1.3 mg/dL (1.8-2.4); POTASSIUM 3.5 mmol/L (3.5-5.1); TOTAL BILIRUBIN 0.5 mg/dL (<0.1-1.0); TOTAL PROTEIN 5.5 g/dL (6.4-8.2)
[2019-08-10 08:00] VITALS: BP 123/87
--- NOTE | 2019-08-10 10:19 | NUR ---
PT A/O. TELE TRACKING SR/SB WITH A BBB AND ALL VSS ON ROOM AIR. CIWA SCORE 0. PT DENIES CP, SOA. BANANA BAG AND LR INFUSING PER ORDERS. PLEASE SEE ASSESSMENT FOR ADDITIONAL INFO
--- NOTE | 2019-08-10 15:02 | NUR ---
Pt is A&O. Resides at home alone. Independent. Hx of [facility]. Hx of skilled at [facility] and [facility]. Pt uses the [employer] bus for transportation. Possible dc to home tomorrow, DM to discuss HH with [place]. Following.
[2019-08-10 16:30] VITALS: BP 147/86
--- NOTE | 2019-08-10 18:01 | NUR ---
PATIENT TRANSFERRED FROM [facility] THIS AFTERNOON. REPORT RECEIVED FROM ROBBIE YANES. PATIENT AMBULATING IN HALLS WITH PT, UTILZING WALKER. IV BANANA BAG INFUSING. VOIDING YELLOW URINE PER URINAL. VITALS STABLE. CALL LIGHT WITHIN REACH.
[2019-08-10 21:19] VITALS: BP 124/75
--- NOTE | 2019-08-11 05:52 | NUR ---
PT SLEPT WELL OVERNIGHT WITHOUT COMPLAINTS. USING URINAL TO VOID WITHOUT DIFFICULTY. UP WITH WALKER AND SBA TO BATHROOM FOR BM TONIGHT. HS ACCUCHECK 125. PO MAG GIVEN AT HS, AM LABS DRAWN. LAC IVF INFUSING PER PUMP. [place]TOK. ABLE TO USE CALL LITE AND MAKE NEEDS KNOWN. BED ALARM ON FOR SAFETY.
[2019-08-11] MEDS ORDERED: DOXYCYCLINE 10100 M2 PO (08:46)
[2019-08-11] MEDS ORDERED: ADULT LOW DOSE81 MG PO (08:46)
[2019-08-11] MEDS ORDERED: VITAMIN B-12500 MCG PO (08:46)
[2019-08-11 09:51] VITALS: BP 163/92
[2019-08-11 11:23] VITALS: BP 163/92
--- NOTE | 2019-08-11 11:26 | NUR ---
JUDIE called pt and discussed pt to dc home today with HH services to follow. Pt choice for HH is [facility]. DC estate planner to fax referral and final orders for HH to [facility]. Pt needs cab voucher ride home as he does not have any transportation resources. Pt in agreement with plan.
[2019-08-11 13:18] VITALS: BP 163/92
--- NOTE | 2019-08-11 16:04 | NUR ---
PT. DISCHARGED TO HOME PRIOR TO O.T. EVAL. PLEASE ORDER FURTHER O.T. SERVICES IF NEEDED.
--- NOTE | 2019-08-11 16:46 | NUR ---
PT BEIG DISCHARGED TO HOME SELF CARE. ALL DISCHARGE ORDERS REVIEWED WITH THE PT AND PAPERWORK GIVEN. PT HAS ALL BELONGINGS. ADDRESS OBTAINED FOR CAB TICKET. TRANSPORTED TO [facility] VIA W/C ACCOMPANIED BY STAFF. PT STABLE.
--- NOTE | 2019-08-12 11:23 | NUR ---
[facility] CALLED REGARDING NOT ABLE TO REACH PATIENT VIA BOTH PATIENT'S HOME AND CELL NUMBER. THEIR STAFF WAS UNABLE TO CONNECT BY PHONE SO WENT TO THE RESIDENT'S HOME BUT THERE WAS NO ANSWER. THEY WILL CONTINUE TO REACH PATIENT AND KEEP US POSTED. OUR SAP SPECIALIST NOTIFIED. SPOKE TO SHIMA AT [facility]. [facility] [phone]
--- NOTE | 2019-08-13 12:00 | CON ---
[address] [address] CONSULTATION Name: MAME MILIAN Room: [address] IN M.R.#: [id number] Admission: 08/08/19 Attend Phys: Scott Campos MD Discharge: 08/11/19 Date of : 46 Report #: [id number] THIS REPORT FOR: //name// cc: Kelvin Bacon MD, David L. MD ~ THIS REPORT FOR: //name// CC: Kelvin Campos DATE OF SERVICE: 08/09/2019 HISTORY OF PRESENT ILLNESS: This is a 68-year-old male patient who was evaluated by me for any neurological etiology for the patient's episode of passing out. The patient does not remember anything about the episode. Most of the history in that regard is from the records. No family member is available to give any history. It looks like the patient was belligerent, confused when the ambulance people arrived. He does not know what happened at that time. He indicates he does drink alcohol. He is pretty reluctant to give the amount of alcohol he drinks in a day. He also indicates he is a diabetic. He does not know if he becomes hypoglycemic intermittently or not. There is some history suggestive of the fact that this patient has multiple falls, but the patient does not provide any clear history in that regard and he indicates he does not remember. REVIEW OF SYSTEMS: Indicate that he does have a history of significant alcohol intake. He is hard of hearing. It is not clear what happened during this episode. He does have a history of diabetes. Record indicates some history of lactic acidosis as well as pulmonary infiltrate. A 14-point review of system was carried out and it is difficult to carry out for sure. He is hard of hearing, but he is able to count the fingers, but takes a long time to do that. He denies any cardiac, respiratory, GI, , musculoskeletal, constitutional, dermatological, hematological, psychiatric, throat or allergic symptoms associated with present symptomatology. PAST MEDICAL HISTORY: Positive for what looks like significant alcohol intake and diabetes. FAMILY HISTORY: Negative for any early age stroke. SOCIAL HISTORY: He drinks alcohol. The exact amount is unknown. PHYSICAL EXAMINATION: Indicate he is alert. He is responsive. He can follow simple commands. Sometime he will tell it is July and he is in [place]. His speech looks intact. His cranial nerve examination is difficult to carry out because the patient says he takes a long time to count the fingers, [place] [address] CONSULTATION Name: MAME MILIAN Room: [address]#: [id number] Admission: 08/08/19 Attend Phys: Scott Campos MD Discharge: 08/11/19 Date of : 46 Report #: [id number] to do it many of those times. He moves all 4 extremities. Sensation is intact. Reflexes are diminished. Tone looks symmetrical. No cerebellar signs, no papilledema, no carotid bruit, no thyroid mass. The patient is reasonably well-developed individual who does not have any dysmorphic features of eyes, ears and face. His vision and hearing was tested. It is very difficult to tell as described above. Cardiac examinations appear unremarkable. No respiratory difficulty or rhonchi was noticed. His pulses are nicely palpable in both lower extremities. He is hard of hearing. His blood pressure is 133/68, pulse is 93, respirations 17, and temperature is 98.2. LABORATORY DATA: White count is 4.9. He is slightly hypernatremic with a sodium of 148. His imaging study indicates a CT scan of the head does not show any acute process. IMPRESSION: It is difficult to tell what happened during this episode. It is possible he had a seizure, which may be related to his alcohol intake. The diagnosis is being considered for lactic acidosis. It is also possible that he was hypoglycemic at that time. Neurological etiology like unprovoked seizures or stroke is there, but is considered less likely. RECOMMENDATIONS: 1. We will get an MRI and MRA done. 2. We will get an EEG done. 3. We will get a TSH and vitamin B12 done because of his memory looks poor and we will await the workup to see if we need to do any further workup. The patient looks like is improving and may be back to his baseline. Thank you very much for this referral and if you have any question, please feel free to contact me. <ELECTRONICALLY SIGNED> By: Kun Russell MD 08/13/19 1200 1112 1153Pramin Russell MD /nt
--- NOTE | 2019-08-13 12:00 | EEG ---
[address] [address] EEG STUDY REPORT Name: MAME MILIAN Room: [address] IN M.R.#: [id number] Admission: 08/08/19 Attend Phys: Scott Campos MD Discharge: 08/11/19 Date of : 46 Report #: [id number] THIS REPORT FOR: //name// CC: Kelvin Campos DATE OF SERVICE: 08/09/2019 This patient is being evaluated for altered mental status. EEG was done to further evaluate that. The EEG was done by placing the electrode by standard 10-20 system of electrode placement. Both referential and sequential montages were used for recording. Background activity in this patient's EEG is about 9 Hz and 30 microvolts. There is a poorly formed background activity. The patient goes to sleep associated with bilateral slowing, even without the patient's background activity is intermixed with theta range slowing on both sides. IMPRESSION: This patient's EEG is intermixed with theta range slowing on both sides of a nonspecific abnormality, which can occur with dementia, encephalopathy, effect of psychotropic medication, etc. Clinical correlation is recommended. <ELECTRONICALLY SIGNED> By: Kun Russell MD 08/13/19 1200 [id number] Russell MD /nt
== END 2019-08-11 13:45 | disposition home health service (06) | DRG 177 ==
LOC: M.ERS 16:47 → M.TBA-ER 23:05 → M.2W 23:49 → M.3W 08-10 16:35
PROVIDERS: Emergency Medicine Emergency Medical Services; Internal Medicine; ADMIT Internal Medicine
DX: J15.6 Pneumonia due to other Gram-negative bacteria (principal); G92 Toxic encephalopathy; E87.2 Acidosis; F10.129 Alcohol abuse with intoxication, unspecified; E11.9 Type 2 diabetes mellitus without complications; I65.1 Occlusion and stenosis of basilar artery; Z79.82 Long term (current) use of aspirin; Z79.899 Other long term (current) drug therapy; Z98.49 Cataract extraction status, unspecified eye